=== PATIENT | male | born 1970 | race African-American/Black ===

== ENCOUNTER 2021-09-27 11:16 | Emergency (ER) | payer BC, SELFPAY | END 2021-09-27 13:00 | disposition home or self-care (01) | LOC: CSHERS 11:16 | DX: M54.50 Low back pain, unspecified (principal); R53.1 Weakness; R42 Dizziness and giddiness; F17.210 Nicotine dependence, cigarettes, uncomplicated; X50.1XXA Overexertion from prolonged static or awkward postures, initial encounter | CPT/HCPCS: 99283 ==